=== PATIENT | male | born 1960 | race Caucasian/White ===

== ENCOUNTER 2017-05-18 03:29 | Emergency (ER) | payer MEDICARE ==
[~2017-05-18] VITALS: Ht 175.3 cm; Wt 70.3 kg
[~2017-05-18 03:29] MED LIST: ACETAMINOPHEN500 M3 PO; ASPIR 8181 MG PO; BACLOFEN 10MG T10 MG PO; BUPROPION HYDR150 M1 PO; DIVALPROEX 250250 MG PO; FIORICET1 CAP PO; GABAPENTIN300 MG PO; ISOSORBIDE MONO30 MG PO; LIPITOR40 MG PO; LISINOPRIL40 MG PO; METOPROLOL SUCC25 M1 PO; NITROGLYCERIN0.4 MG SL; QUETIAPINE FUMA25 MG PO; ROBAFEN100 MG/5 M PO; TRAMADOL 50MG T50 M1 PO
[2017-05-18 05:04] LABS: HEMOGLOBIN 14.5 g/dL (14.1-18.0); LYMPH # 1.3 K/mm3 (0.7-4.5); LYMPH % 10.8 % (10-50)
[2017-05-18 05:06] LABS: URINE BILIRUBIN - DIPSTICK NEGATIVE (NEG); URINE BLOOD NEGATIVE (NEG)
[2017-05-18 05:19] LABS: AMPHETAMINES/METAMPHETAMINES NEGATIVE ng/mL (<1000)
[2017-05-18 05:30] LABS: BUN 16 mg/dL (7-18); GFR (ESTIMATED) 48 ML/MIN (>60)
--- NOTE | 2017-05-18 06:37 | Emergency Room Report ---
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 wants the doctor to check his shoulders and recommend good therapy for his muscles. 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 N Clinical Suspician of Infection? N Mental Status: 2 - Mildly Altered Sepsis Risk:Low Sepsis Risk Have you (or family members/close friends) recently traveled outside the [place]? N If Yes, where/when: Have you had exposure to infectious disease within the past month? N TB? Other? Specify: Source patient, RN notes reviewed, EMS, old records Exam Limitations no limitations Comment pt with multiple issues which include koroma and drugs and occ abd pain with no fever or rash -pt is poor historian Cardiac Chest Pain Chest pain indicative of cardiac No Timing/Duration this evening Severity moderate ALLERGIES Coded Allergies: Penicillins (12/01/16) acetaminophen (From PERCOCET) (12/01/16) codeine (12/01/16) meperidine (From DEMEROL) (12/01/16) oxycodone (From PERCOCET) (12/01/16) sertraline (From ZOLOFT) (12/01/16) Home Medications Active Scripts BUTALB/ACETAMINOPHEN/CAFFEINE (Fioricet 50-300-40 MG Capsule) 1 CAP PO Q6HP PRN headache #20 CAP Prov: 08/31/16 Reported Medications NITROGLYCERIN (Nitrostat) 0.4 MG SL [id number] PRN CHEST PAIN Quetiapine Fumarate (Quetiapine 25MG) 50 MG PO QHS Guaifenesin (Robafen) 100 MG PO Q4HP PRN COUGH TRAMADOL HCL (Tramadol) 50 MG PO Q4HP PRN PAIN Acetaminophen (Acetaminophen Extra Strength) 500 MG PO QHS Aspirin (Aspirin EC 81MG Tab) 81 MG PO DAILY Atorvastatin Calcium (Atorvastatin) 40 MG PO DAILY BACLOFEN (Baclofen) 10 MG PO TID Bupropion Hcl (Bupropion HCl Sr) 150 MG PO BID Divalproex Sodium (Divalproex Sodium ER) 750 MG PO DAILY Gabapentin (Gabapentin 300MG) 600 MG PO QHS Gabapentin (Gabapentin 300MG) 300 MG PO QAM Gabapentin (Gabapentin 300MG) 300 MG PO DAILY AT 1200 Isosorbide Mononitrate (Isosorbide Mononitrate ER) 30 MG PO QHS Lisinopril (Lisinopril 40MG) 40 MG PO DAILY Metoprolol Succinate Xl (Metoprolol ER 25MG) 25 MG PO BID History Medical History General CAD? Yes Angina: Yes [place]: Yes Hypertension? Yes Hyperlipidemia? Yes CHF? Yes DVT? No PE? No COPD? No Asthma? No Anemia? No GERD? No Gastric ulcers? No GI Bleed? No Hernia? Yes Thyroid Problems? No Hypothyroidism? No CVA? Yes Seizures? Yes Diabetes? No Renal Insuffiency? No End Stage Renal Disease? No UTI? No Stones? No BPH? No GB Disease: No Nephritic Syndrome? No Asplenia? No Hepatitis? No Sickle Cell Disease? No Arthritis? No Migraines? Yes Cataracts? No Glaucoma? No MRSA? No HIV? No TB? No Anxiety? Yes Depression? Yes Cancer? No More? 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 Respiratory denies cough, denies shortness of breath, denies wheezing Cardiovascular denies chest pain, denies palpitations, denies syncope Gastrointestinal denies abdominal pain, denies diarrhea, denies vomiting Genitourinary denies: dysuria, frequency, hesitancy, hematuria. Musculoskeletal denies back pain, denies joint pain, denies joint swelling, denies neck pain Skin denies rash Psychiatric/Neurological headache, denies seizure Physical Exam Vital Signs Vital Signs Date Time Temp Pulse Resp B/P Pulse O2 O2 Flow FiO2 Ox Delivery Rate 05/18 0639 98.0 97 14 104/76 98 05/18 0500 98.0 97 14 134/80 94 05/18 0333 97.0 111 14 147/99 94 - WBC >12,000 or <4,000 or 10% bands? 2 or more SIRS Criteria Met? B/P:104/76 MAP:115 Creatinine >2.0? UA output<0.5ml/kg/hr for 2 hrs? Platelet count >100,000? Lactate >2.0mmol/1? INR >1.2 or PTT > than 60 sec? Evidence of Organ Dysfunction? Provider documented clinical suspician of infection? N Sepsis Criteria Count: 1 Sepsis Risk: Low Sepsis Risk General Appearance no apparent distress Eye Exam - bilateral eye PERRL, bilateral eye EOMI Ear, Nose, Throat normal ENT inspection Neck supple Respiratory Status No: respiratory distress. Lung Sounds bilateral: lungs clear. 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 No Results/Orders Laboratory Tests 05/18/17414: Amylase 53, Lipase 143, Opiates Screen NEGATIVE, Urine Methadone Screen NEGATIVE , Barbiturates NEGATIVE, Phencyclidine Screen NEGATIVE, Amphetamines Screen NEGATIVE, Benzodiazepines Screen NEGATIVE, Cocaine Screen NEGATIVE, Marijuana ( THC) Screen NEGATIVE 05/18/17414: Sodium 126 L, Potassium 4.4, Chloride 91 L, Carbon Dioxide 24, BUN 16, Creatinine 1.5 H, Estimated Creat Clear 55, Estimated GFR (MDRD) 48, Glucose 116 H, Calcium 8.9, Total Bilirubin 0.4, AST 11 L, ALT 15, Alkaline Phosphatase 81, Creatine Kinase 228, CK-MB (CK-2) Rel Index 0.4, CK and CKMB Interp 1.0, Troponin I < 0.02, Total Protein 6.9, Albumin 4.2, Globulin 2.7, Albumin/Globulin Ratio 1.6, WBC 12.2 H, RBC 4.38 L, Hgb 14.5, Hct 42.6, MCV 97.2, RDW 13.2, Plt Count 366, MPV 9.2, Gran % 82.7 H, Gran # 10.0 H, Lymphocytes % 10.8, Monocytes % 5.7, Eosinophils % 0.4, Basophils % 0.4, Lymphocytes # 1.3, Monocytes # 0.7, Eosinophils # 0.0, Basophils # 0.1, PUBS MCHC 34.0, MCH 33.1 H, Salicylates 5.8, Acetaminophen 0 L, Alcohols 0 05/18/17 0407: Urine Color YELLOW, Urine Appearance CLEAR, Urine pH 7.0, Ur Specific [place] 1.020, Urine Protein TRACE H, Urine Ketones NEGATIVE, Urine Blood NEGATIVE, Urine Nitrate NEGATIVE, Urine Bilirubin NEGATIVE, Urine Urobilinogen 1.0, Ur Leukocyte Esterase 1+ H, Urine WBC 10-20, Amorphous Sediment TRACE, Urine Glucose NEGATIVE 05/18/17 0404: Acetaminophen Cancelled Current Medication Orders Sig/Perico Start time Last Medication Dose Route Stop Time Status Admin Ceftriaxone Sodium 0 .STK-MED ONE 05/18 0650 DCr IV Sodium Chloride 100 ML .STK-MED ONE 05/18 0649 DC IV Ceftriaxone Sodium 1 GM ONCE ONE 05/18 0645 r 05/18 Sodium Chloride 50 ML IV 05/18 0714 0651 Ondansetron HCl 4 MG ONCE ONE 05/180 DC 05/18 IV 05/18 431 0420 Ondansetron HCl 0 .STK-MED ONE 05/186 DC .ROUTE Sodium Chloride 1,000 ML .STK-MED ONE 05/18 416 DC IV Sodium Chloride 1,000 ML .Q1H1M 05/185 DC 05/18 IV 05/18 0515 0420 Sodium Chloride 10 ML PRN PRN 05/18 415 AC IV 05/19 411 Orders Procedure Date/time Status DIET-NOTHING BY MOUTH 05/18 B Active LIPASE 05/18 522 Complete AMYLASE 05/[address] HEAD W/O CONTRAST 05/[address] ABD & PELVIS W/O CONTRAST 05/[address] ABD/PELVIS REQ 05/18 0419 Active CULTURE, URINE 05/18 407 Active ELECTROCARDIOGRAM REQUEST 05/[address] HEAD REQ 05/18 403 Active IV SALINE LOCK 05/18 403 Active URINALYSIS/COMPLETE 05/18 403 Complete SALICYLATE 05/18 403 Complete DRUG ABUSE SCREEN (TRIAGE) 05/18 403 Complete CBC WITH AUTO DIFF 05/18 403 Complete CARDIAC ENZYMES 05/18 403 Complete CHEM 12 PROFILE 05/18 403 Complete ALCOHOL 05/18 403 Complete Acetaminophen 05/18 403 Complete 12 LEAD EKG-LOLI (INITIAL) 05/18 035 Active CM/EKG CM/last pattern grader Rhythm Sinus Tachycardia EKG compared w/(date of old), non-spec. ST/Twave chgs XRAY/CT/US XRAY/CT/US CT head, abdomen, pelvis CT interpretation by discussed w/radiologist Time results known: 635 CT Results abnormal (see report) Departure Departure Time of Disposition 701 Disposition DC Home or Self Care(routine) Clinical Impression Primary Impression: UTI (urinary tract infection) Qualifiers: Urinary tract infection type: acute cystitis Hematuria presence: without hematuria Qualified Code: N30.00 - Acute cystitis without hematuria Condition STABLE Patient Instructions DI for Urinary Tract Infection (UTI) Additional Instructions fluids and see pcp for follow up and use meds Discharge Counseling Counseled pt/family regarding diagnosis, test results, medications/RX, follow up needs Prescriptions Current Visit Scripts Ciprofloxacin HCl (Cipro 500MG TAB) 500 MG PO BID #14 TAB ED Critical Care Critical Care No at 0703
[2017-05-18] MEDS ORDERED: CIPRO 500MG TA500 MG PO (07:03)
--- NOTE | 2017-05-18 07:11 | RADIOLOGY REPORT PS360 ---
CT HEAD W/O CONTRAST HISTORY: Dizziness, difficulty walking, unsteady gait UNSTEADT GAIT ORDERING PHYSICIAN: Chicho Ge MD PATIENT AGE: 56 years COMPARISON: 04/28/2017 TECHNIQUE: Axial images obtained without contrast. Brain and bone windows reviewed. FINDINGS: No midline shift, mass effect, intracranial hemorrhage, hydrocephalus, or extra-axial fluid collection is evident. The calvarium has an unremarkable appearance. No mastoid effusion. The visualized paranasal sinuses are unremarkable. IMPRESSION: No acute intracranial findings, negative CT head without contrast
[2017-05-18 07:20] VITALS: BP 103/75
--- NOTE | 2017-05-18 10:37 | RADIOLOGY REPORT PS360 ---
CT ABD PELVIS W/O CONTRAST CLINICAL INDICATION: Nausea and vomiting VOMITING ORDERING PHYSICIAN: Chicho Ge MD PATIENT AGE: 56 years COMPARISON: None TECHNIQUE: Axial images obtained with sagittal and coronal reformats. PROCEDURE: Oral Contrast: None IV Contrast: None . FINDINGS: No acute finding in the lung bases. Artifact is present from an RV pacing. The liver, spleen, adrenal glands, pancreas, gallbladder, kidneys, ureters, and urinary bladder have an unremarkable unenhanced CT appearance. There is mild thickening of the fat along the upper margin of the right hepatic lobe including the right lateral conal fascia. No intestinal obstruction or free air. A moderate amount retained colonic feces. No evidence of appendicitis or diverticulitis. There is diverticulosis of the sigmoid colon. Atheromatous calcification involves the aortoiliac vessels. No evidence of aneurysm. No acute bony anomalies. IMPRESSION: 1. Mild inflammatory changes in the right upper quadrant region of Morison's pouch and right lateral conal fascia. This is nonspecific but can be seen with localized colitis or even pyelonephritis. No hydronephrosis or obstructing ureteral calculus. 2. Otherwise negative CT abdomen pelvis
== END 2017-05-18 07:21 | disposition home or self-care (01) ==
LOC: ER 03:29
PROVIDERS: Emergency Medicine
DX: N30.00 Acute cystitis without hematuria (principal); I11.0 Hypertensive heart disease with heart failure; I50.9 Heart failure, unspecified; E78.5 Hyperlipidemia, unspecified; I42.9 Cardiomyopathy, unspecified; Z88.5 Allergy status to narcotic agent; Z88.0 Allergy status to penicillin; Z88.8 Allergy status to other drugs, medicaments and biological substances; Z79.82 Long term (current) use of aspirin; Z79.891 Long term (current) use of opiate analgesic; Z79.899 Other long term (current) drug therapy; I25.10 Atherosclerotic heart disease of native coronary artery without angina pectoris; I25.2 Old myocardial infarction; Z86.73 Personal history of transient ischemic attack (TIA), and cerebral infarction without residual deficits; F10.10 Alcohol abuse, uncomplicated; I73.00 Raynaud's syndrome without gangrene; F17.210 Nicotine dependence, cigarettes, uncomplicated
CPT/HCPCS: J2405